=== PATIENT | female | born 1990 | race Caucasian/White ===

== ENCOUNTER → 2020-10-09 | Outpatient (CLI) | payer OTHER ==
--- NOTE | 2020-10-09 13:31 | MM ---
Reason for exam: clinical finding. History: Family history of breast cancer in paternal grandmother. Physical Findings: Nurse Summary: 2cm nodule in the left breast at 7 o'clock (nurse marcelina). MG 3D Diag Mammo W/Cad NAY Bilateral CC and MLO view(s) were taken. The breast tissue is extremely dense which could obscure a lesion on mammography. 3cm mass in the left breast at 5 o'clock, 5cm from nipple. Ultrasound left breast. These results were verbally communicated with the patient and result sheet given to the patient on 10/09/20. ASSESSMENT: Incomplete: need additional imaging evaluation, BI-RAD 0 RECOMMENDATION: Ultrasound of the left breast.
--- NOTE | 2020-10-09 13:33 | USB ---
Reason for exam: additional evaluation requested from abnormal screening. History: Family history of breast cancer in paternal grandmother. US Breast Workup Limited LT Left limited breast ultrasound including focal area of concern, retroareolar and axilla demonstrates a 2.9 x 2.3 x 3.4cm solid lesion at 8 o'clock. Recommend left ultrasound guided breast biopsy. These results were verbally communicated with the patient and result sheet given to the patient on 10/09/20. ASSESSMENT: Suspicious, BI-RAD 4 RECOMMENDATION: Ultrasound core biopsy of the left breast. Called Dr. Price's office with mammographic findings and has scheduled an appointment for the patient for 10/25/20 at 1:[address] Frye. Biopsy scheduled for 11/01/20. PRELIMINARY REPORT CALLED AND FAXED TO DR. FRYE ON 10/09/20.
== END | disposition home or self-care (01) ==
LOC: RADMAMWWP 07:17
PROVIDERS: ATTEND Family Medicine
DX: N63.24 Unspecified lump in the left breast, lower inner quadrant (principal); N63.23 Unspecified lump in the left breast, lower outer quadrant; R92.8 Other abnormal and inconclusive findings on diagnostic imaging of breast; Z80.3 Family history of malignant neoplasm of breast
CPT/HCPCS: 77062; 77066

== ENCOUNTER → 2020-10-25 | Outpatient (CLI) | payer OTHER ==
[2020-10-25 13:10] VITALS: BP 126/85; PULSE 100; RESP 16; TEMP 98.6
--- NOTE | 2020-10-25 13:37 | P.GSHP ---
History of Present Illness H&P Date: 10/25/20 Chief Complaint: mass left breast Temitope is a 30 year old white female who noted a lump in her left breast approximately 1 year ago. She is seen in consultation for Dr. Dior. She states the lump is uncomfortable near her. It has not changed in size otherwise. The patient had a bilateral mammogram performed on [id number] this was her first mammogram and she was noted to have a 3 cm mass in the left breast at 5 o'clock position. She then underwent an ultrasound and the ultrasound revealed a 3.4 cm solid lesion at the 8 o'clock position this was considered suspicious BIRADS 4 and ultrasound-guided core biopsy was recommended. The patient has not had any prior surgery in her breast is not reporting any infection or trauma to the breast. Caffiene: 1 liter of pop/day nicotine: second hand smoke/dad chocolate: daily Family history: paternal great-grandmother: breast Hormonal History: menarche: 10 Go periods regular/LMP 2 weeks ago BCP: none hormones: none Surgical history: Sutures right leg Medical history: none History: Nicotine: Secondhand smoke exposure Alcohol: Occasional Drugs: Negative - Constitutional Constitutional: Denies chills, Denies fever - EENT Eyes: denies blurred vision, denies pain Ears: deny: decreased hearing, tinnitus Ears, nose, mouth and throat: Denies headache, Denies sore throat - Breasts Breasts: bilateral: as per HPI - Cardiovascular Cardiovascular: Denies chest pain, Denies shortness of breath - Respiratory Respiratory: Denies cough, Denies 7 - Gastrointestinal Gastrointestinal: Denies abdominal pain, Denies diarrhea, Denies nausea, Denies vomiting - Genitourinary (Female) Genitourinary: Denies dysuria, Denies hematuria - Menstruation Menstruation: Reports period normal - Musculoskeletal Musculoskeletal: Denies myalgias - Integumentary Integumentary: Denies pruritus, Denies rash - Neurological Neurological: Denies numbness, Denies weakness - Psychiatric Comment: Possible seasonal affective disorder Psychiatric: Reports depression - Endocrine Endocrine: Denies fatigue, Denies weight change - Hematologic/Lymphatic Comment: none - Allergic/Immunologic Allergic/Immunologic: Reports seasonal allergies Past Medical History History of Any Multi-Drug Resistant Organisms: None Reported Smoking Status: Second hand smoke exposure Medications and Allergies Home Medications Medication Instructions Recorded Confirmed Type Guaifen/Phenyleph/Acetaminophn 1 each PO Q4H PRN 10/24/20 10/25/20 History [Tylenol Sinus Severe Caplet] Ibuprofen [Advil] 200 mg PO Q6HR PRN 10/24/20 10/25/20 History Allergies Allergy/AdvReac Type Severity Reaction Status Date / Time No Known Allergies Allergy Verified 10/25/20 12:58 Surgical - Exam Vital Signs Temp Pulse Resp BP Pulse Ox 98.6 F 100 16 126/85 98 10/25/20 13:01 10/25/20 13:01 10/25/20 13:01 10/25/20 13:01 10/25/20 13:01 BMI 37.1 - General well developed, no distress - Eyes normal ocular movement - ENT normal pinna, normal nares, no hearing loss - Neck no masses, trachea midline - Respiratory normal respiratory effort, clear to auscultation - Cardiovascular Rhythm: regular Heart Sounds: normal: S1, S2 - Integumentary normal turgor - Neurologic no disoriented, no combative - Musculoskeletal normal gait, normal posture - Psychiatric Breast Exam: BRA: 36DD inspection: Bilateral grade 3 ptosis Palpation: Right breast: Multiple positional exam fibrocystic changes no dominant masses or nodules of concern Right axilla: No adenopathy of concern Left breast: Fibrocystic changes at the 7 to 8 o'clock position there is approximately 3 cm mobile mass Left axilla: No adenopathy of concern Results Mammogram and ultrasound reviewed in person with Dr. Galaviz Assessment and Plan Assessment: Impression: 1. Mass left breast 7 to 8 o'clock position 2. Radiographic abnormality left breast 7 o'clock position 3. Fibrocystic breast changes 4. Mass most likely represents a benign fibroadenoma Plan: 1. Would recommend ultrasound-core biopsy of the area to confirm fibroadenoma This and benefits of the procedure discussed with the patient. She understands and wishes to proceed. She will be seen following the core biopsy. CC: Dr. Dior
== END ==
LOC: WWCWWP 12:47
PROVIDERS: ATTEND Surgery
DX: N63.23 Unspecified lump in the left breast, lower outer quadrant (principal); N60.11 Diffuse cystic mastopathy of right breast; N60.12 Diffuse cystic mastopathy of left breast

== ENCOUNTER → 2020-11-01 | Day surgery (SDC) | payer OTHER ==
[2020-11-01 09:39] VITALS: RESP 16
[2020-11-01 10:56] VITALS: BP 99/66; PULSE 70; TEMP 98
--- NOTE | 2020-11-01 11:23 | USB ---
EXAMINATION TYPE: US biopsy breast VAD LT DATE OF EXAM: 11/01/2020 CLINICAL HISTORY: R92.8 Abnormal Mammogram. TECHNIQUE: Ultrasound guided core biopsy of left breast. COMPARISON: 10/09/2020 FINDINGS: The procedure of ultrasound guided core biopsy was explained to the patient. Benefits, alternatives, and risks were discussed. An informed consent was then obtained. The patient was placed in supine positioning for imaging and for the procedure. The overlying skin was prepped and draped in usual sterile fashion. Lidocaine buffered with bicarbonate was used as anesthetic into the skin and subcutaneous tissue up to area of concern in the left breast. A [place] was made with surgical scalpel. Under ultrasound guidance, a 12-gauge vacuum assisted biopsy gun device was used to obtain 4 core samples. Following this, a biopsy clip was left in lesion. The patient tolerated the procedure well without any immediate complication. The patient was kept in the radiology department for short stay after the procedure and then discharged home in stable condition. IMPRESSION: Successful, uncomplicated ultrasound guided core biopsy of area of concern in the left breast, full pathology results to follow. Pathology Results: Benign LEFT BREAST, 8:00, ULTRASOUND GUIDED CORE BIOPSY: Fibroadenoma. Recommendation Follow up ultrasound of the left breast in 6 months. DOROTHY
== END ==
LOC: RADUSWWP 09:23
PROVIDERS: ATTEND Surgery
DX: D24.2 Benign neoplasm of left breast (principal); R92.8 Other abnormal and inconclusive findings on diagnostic imaging of breast
CPT/HCPCS: 88305; 19083; A4648; J2001

== ENCOUNTER → 2020-11-07 | Outpatient (CLI) | payer OTHER ==
[2020-11-07 11:02] VITALS: BP 112/76; PULSE 89; RESP 18; TEMP 98.4
--- NOTE | 2020-11-07 11:14 | P.PN ---
Subjective Progress Note Date: 11/07/20 Principal diagnosis: symptomatic fibroadenoma left breast Temitope is a 30 year old white female who noted a lump in her left breast approximately 1 year ago. She is seen in consultation for Dr. Dior. She states the lump is uncomfortable near her. It has not changed in size otherwise. The patient had a bilateral mammogram performed on this was her first mammogram and she was noted to have a 3 cm mass in the left breast at 5 o'clock position. She then underwent an ultrasound and the ultrasound revealed a 3.4 cm solid lesion at the 8 o'clock position this was considered suspicious BIRADS 4 and ultrasound-guided core biopsy was recommended. The patient has not had any prior surgery in her breast is not reporting any infection or trauma to the breast. She underwent an ultrasound-guided core biopsy and which revealed a fibroadenoma of the lesion in the left breast at the 8 o'clock position. The patient states that the fibroadenoma is tender, and it has increased in size. She would like it to be removed. Caffiene: 1 liter of pop/day nicotine: second hand smoke/dad chocolate: daily Family history: paternal great-grandmother: breast Hormonal History: menarche: 10 Go periods regular/LMP 2 weeks ago BCP: none hormones: none Surgical history: Sutures right leg Medical history: none History: Nicotine: Secondhand smoke exposure Alcohol: Occasional Drugs: Negative - Constitutional Constitutional: Denies chills, Denies fever - EENT Eyes: denies blurred vision, denies pain Ears: deny: decreased hearing, tinnitus Ears, nose, mouth and throat: Denies headache, Denies sore throat - Breasts Breasts: bilateral: as per HPI - Cardiovascular Cardiovascular: Denies chest pain, Denies shortness of breath - Respiratory Respiratory: Denies cough, Denies 7 - Gastrointestinal Gastrointestinal: Denies abdominal pain, Denies diarrhea, Denies nausea, Denies vomiting - Genitourinary (Female) Genitourinary: Denies dysuria, Denies hematuria - Menstruation Menstruation: Reports period normal - Musculoskeletal Musculoskeletal: Denies myalgias - Integumentary Integumentary: Denies pruritus, Denies rash - Neurological Neurological: Denies numbness, Denies weakness - Psychiatric Comment: Possible seasonal affective disorder Psychiatric: Reports depression - Endocrine Endocrine: Denies fatigue, Denies weight change - Hematologic/Lymphatic Comment: none - Allergic/Immunologic Allergic/Immunologic: Reports seasonal allergies Objective - Vital Signs Vital signs: Vital Signs Temp 98.4 F 11/07/20 10:58 Pulse 89 11/07/20 10:58 Resp 18 11/07/20 10:58 BP 112/76 11/07/20 10:58 Pulse Ox 98 11/07/20 10:58 Intake & Output 11/06/20 11/07/20 11/07/20 18:59 06:59 18:59 Weight 104.326 kg - Exam BMI 37.1 - Constitutional General appearance: Present: cooperative - EENT Eyes: Present: EOMI ENT: Present: hearing grossly normal - Neck Neck: Present: normal ROM - Respiratory Respiratory: bilateral: CTA - Cardiovascular Rhythm: regular Heart sounds: normal: S1, S2 - Integumentary Integumentary Comment(s): Biopsy site left breast mild ecchymosis, no evidence of infection or hematoma - Musculoskeletal Musculoskeletal: Present: gait normal - Psychiatric Psychiatric: Present: A&O x's 3, appropriate affect, intact judgment & insight Assessment and Plan Assessment: Impression: 1. Tender enlarging fibroadenoma left breast Plan: 1. Removal of fibroadenoma Risks and benefits of the procedure discussed with the patient she understands and wishes to proceed. Risks include but are not limited to bleeding, infection, reaction to the anesthetic. Additionally the fibroadenoma can recur. Cc: Dr. Dior
== END ==
LOC: WWCWWP 10:49
PROVIDERS: ATTEND Surgery
DX: D24.2 Benign neoplasm of left breast (principal)

== ENCOUNTER → 2021-01-30 | Outpatient (CLI) | payer OTHER ==
[2021-01-30 15:51] VITALS: BP 128/82; PULSE 87; RESP 16; TEMP 98.1
--- NOTE | 2021-01-30 15:55 | P.PN ---
Subjective Progress Note Date: 01/30/21 Principal diagnosis: Symptomatic fibroadenoma left breast Temitope is a 30 year old white female who noted a lump in her left breast approximately 1 year ago. She is seen in consultation for Dr. Dior. She states the lump is uncomfortable near her. It has not changed in size otherwise. The patient had a bilateral mammogram performed on this was her first mammogram and she was noted to have a 3 cm mass in the left breast at 5 o'clock position. She then underwent an ultrasound and the ultrasound revealed a 3.4 cm solid lesion at the 8 o'clock position this was considered suspicious BIRADS 4 and ultrasound-guided core biopsy was recommended. The patient has not had any prior surgery in her breast is not reporting any infection or trauma to the breast. She underwent an ultrasound-guided core biopsy and which revealed a fibroadenoma of the lesion in the left breast at the 8 o'clock position. The patient states that the fibroadenoma is tender, and it has increased in size. She would like it to be removed. Caffiene: 1 liter of pop/day nicotine: second hand smoke/dad chocolate: daily Family history: paternal great-grandmother: breast Hormonal History: menarche: 10 Go periods regular/LMP 2 weeks ago BCP: none hormones: none Surgical history: Sutures right leg Medical history: none History: Nicotine: Secondhand smoke exposure Alcohol: Occasional Drugs: Negative - Constitutional Constitutional: Denies chills, Denies fever - EENT Eyes: denies blurred vision, denies pain Ears: deny: decreased hearing, tinnitus Ears, nose, mouth and throat: Denies headache, Denies sore throat - Breasts Breasts: bilateral: as per HPI - Cardiovascular Cardiovascular: Denies chest pain, Denies shortness of breath - Respiratory Respiratory: Denies cough - Gastrointestinal Gastrointestinal: Denies abdominal pain, Denies diarrhea, Denies nausea, Denies vomiting - Genitourinary (Female) Genitourinary: Denies dysuria, Denies hematuria - Menstruation Menstruation: Reports period normal - Musculoskeletal Musculoskeletal: Denies myalgias - Integumentary Integumentary: Denies pruritus, Denies rash - Neurological Neurological: Denies numbness, Denies weakness - Psychiatric Comment: Possible seasonal affective disorder Psychiatric: Reports depression - Endocrine Endocrine: Denies fatigue, Denies weight change - Hematologic/Lymphatic Comment: none - Allergic/Immunologic Allergic/Immunologic: Reports seasonal allergies Objective - Constitutional General appearance: Present: cooperative - EENT Eyes: Present: EOMI ENT: Present: hearing grossly normal - Neck Neck: Present: normal ROM - Respiratory Respiratory: bilateral: CTA - Cardiovascular Heart sounds: normal: S1, S2 - Gastrointestinal General gastrointestinal: Present: soft - Integumentary Integumentary: Present: normal turgor - Musculoskeletal Musculoskeletal: Present: gait normal - Psychiatric Psychiatric: Present: A&O x's 3, appropriate affect, intact judgment & insight - Additional findings Additional findings: Breast Exam: BRA: 36DD inspection: Bilateral grade 3 ptosis Palpation: Right breast: Multiple positional exam fibrocystic changes no dominant masses or nodules of concern Right axilla: No adenopathy of concern Left breast: Multiple positional exam fibrocystic changes, approximately 3 cm area of nodularity at the 7 to 8 o'clock position consistent with biopsy-proven fibroadenoma Left axilla: No adenopathy of concern Assessment and Plan Assessment: Impression: 1. Symptomatic left breast fibroadenoma Plan: 1. Resection of symptomatic left breast fibroadenoma at 8:00, most likely be used periareolar incision with possible onco-plastic tissue transfer CC: Ovi
== END | disposition home or self-care (01) ==
LOC: WWCWWP 15:34
PROVIDERS: ATTEND Surgery
DX: Z53.9 Procedure and treatment not carried out, unspecified reason (principal)

== ENCOUNTER 2021-02-18 08:20 | Day surgery (SDC) | payer BC, OTHER ==
[2021-02-13 15:39] VITALS: BMI 37.1
[~2021-02-18 08:20] MED LIST: DEXAMETHASONE SOD PHOSPHATE 4 MG/ML 1 ML VIAL IV ONE; HEPARIN SODIUM,PORCINE/PF 5,000 UNIT/0.5 ML SYRINGE SQ PRN; HYDROmorphone 0.5 MG/0.5 ML SYRINGE IVP PRN; LACTATED RINGERS 1,000 ML IV SCH; ONDANSETRON 4 MG/2 ML VIAL IVP ONE
[2021-02-18] MEDS ORDERED: LIDOCAINE 1% (10MG/ML) FOR IV START INTRADERMA ONE (09:15)
[2021-02-18] MEDS ORDERED: SCOPOLAMINE 1.5MG/72HR PATCH TRANSDERM ONE (09:30)
[2021-02-18] MEDS ORDERED: MIDAZOLAM 2 MG/2 ML VIAL ONE (09:38)
[2021-02-18] MEDS ORDERED: PROPOFOL 10 MG/ML 20 ML VIAL IV ONE (09:38)
[2021-02-18] MEDS ORDERED: LIDOCAINE 1% INJ 10MG/ML (20 ML MDV) ONE (09:38)
[2021-02-18] MEDS ORDERED: fentaNYL (PF) 50 MCG/ML 2 ML AMP ONE (09:38)
[2021-02-18] MEDS ORDERED: LIDOCAINE 1% INJ 10MG/ML (20 ML MDV) SQ ONE (10:06)
--- NOTE | 2021-02-18 10:27 | P.OP ---
Date of Procedure: 02/18/21 Preoperative Diagnosis: Left breast fibroadenoma Postoperative Diagnosis: Same Procedure(s) Performed: Excision left breast symptomatic fibroadenoma Anesthesia: JUN Surgeon: Ban Frye Estimated Blood Loss (ml): 2 IV fluids (ml): 400 Pathology: other (fibroadenoma) Condition: stable Disposition: same day Indications for Procedure: Symptomatic fibroadenoma Operative Findings: Mass left breast Description of Procedure: The patient was brought to the operating room and following induction of anesthesia the left breast was prepped and draped in a sterile fashion. An incision was made over the palpable abnormality. Wide excision was performed of the lesion. The lesion was approximately 4 x 3 cm in size. Following this the wound was well irrigated. The deep tissues were closed using 3-0 Vicryl suture. Titanium clips had been placed. The specimen was painted for orientation. The skin was closed using 4-0 Monocryl. 8 Cc of 1% lidocaine were used to anesthetize the area of concern. Steri-Strips were applied. The patient tolerated the procedure in stable condition. All instrument and sponge counts were correct at the end of the case.
--- NOTE | 2021-02-18 10:29 | P.DS ---
Providers Attending physician: Ban Frye Primary care physician: Dayton Dior MD Plan - Discharge Summary Discharge Rx Participant: No New Discharge Prescriptions: No Action Guaifen/Phenyleph/Acetaminophn [Tylenol Sinus Severe Caplet] 1 each PO Q4H PRN PRN Reason: allergies Ascorbic Acid [Vitamin C] 1,000 mg PO DAILY Discharge Medication List Guaifen/Phenyleph/Acetaminophn [Tylenol Sinus Severe Caplet] 1 each PO Q4H PRN 10/24/20 [History] Ascorbic Acid [Vitamin C] 1,000 mg PO DAILY 02/13/21 [History] Follow up Appointment(s)/Referral(s): Ban Frye MD [STAFF PHYSICIAN] - 02/28/21 3:20 pm Patient Instructions/Handouts: *Surgery [facility] - Scopalamine Patch Instructions Activity/Diet/Wound Care/Special Instructions: do not drive today may shower after 48 hours Discharge Disposition: HOME SELF-CARE
[2021-02-18 10:40] VITALS: TEMP 97
[2021-02-18] MEDS ORDERED: HYDROmorphone 0.5 MG/0.5 ML SYRINGE IVP ONE ×2 (10:53)
[2021-02-18 11:09] VITALS: RESP 16
[2021-02-18 11:44] VITALS: BP 138/76; PULSE 63
[2021-02-18] MEDS ORDERED: HYDROcodone/APAP 5-325MG 1 EACH TAB ONE (11:44)
[2021-02-18] MEDS ORDERED: HYDROcodone/APAP 5-325MG 1 EACH TAB PO ONE (11:46)
== END 2021-02-18 12:14 | disposition home or self-care (01) ==
LOC: OR 08:20
PROVIDERS: ATTEND Surgery
DX: D24.2 Benign neoplasm of left breast (principal)
CPT/HCPCS: 19120; 81025; 88305; J2250; J1100; J0690; J2405; J2001; J3010; J2704; J1170

== ENCOUNTER → 2021-02-28 | Outpatient (CLI) | payer BC, OTHER ==
--- NOTE | 2021-02-28 15:32 | P.PN ---
Progress Note - Text Progress Note Date: 02/28/21 Temitope is status [place] [id number]. She has done well postprocedure without any complaints. Physical exam: Incision clean and dry Impression: Patient status post excision fibroadenoma left breast Plan: Repeat left breast ultrasound in 6 months with examination at that time CC: Dr. Dior
[2021-02-28 15:33] VITALS: BP 102/73; PULSE 102; RESP 14; TEMP 98
== END ==
LOC: WWCWWP 15:22
PROVIDERS: ATTEND Surgery
DX: Z53.9 Procedure and treatment not carried out, unspecified reason (principal)

== ENCOUNTER → 2021-08-25 | Outpatient (CLI) | payer BC ==
--- NOTE | 2021-08-25 08:53 | USB ---
Reason for exam: clinical finding. History: Family history of breast cancer in paternal grandmother. Benign US biopsy breast VAD LT of the left breast, November 01, 2020. Physical Findings: A clinical breast exam by your physician is recommended on an annual basis and results should be correlated with mammographic findings. US Breast Limited LT Left limited breast ultrasound including focal area of concern, retroareolar and axilla demonstrates a 0.3 x 0.3 x 0.2cm oval, cystic lesion at 6 o'clock, a 0.3 x 0.3 x 0.2cm oval, cystic lesion at 9 o'clock and duct ectasia at the posterior nipple. Results were given to the patient verbally at the time of the exam. ASSESSMENT: Benign, BI-RAD 2 RECOMMENDATION: Routine screening mammogram of both breasts at age 39.
== END | disposition home or self-care (01) ==
LOC: RADUSWWP 07:43
PROVIDERS: ATTEND Surgery
DX: R92.8 Other abnormal and inconclusive findings on diagnostic imaging of breast (principal)

== ENCOUNTER → 2021-09-04 | Outpatient (CLI) | payer BC ==
[2021-09-04 10:04] VITALS: BP 109/75; PULSE 87; RESP 17; TEMP 98.4
--- NOTE | 2021-09-04 10:15 | P.PN ---
Subjective Progress Note Date: 09/04/21 Principal diagnosis: fibrocystic breast disease Symptomatic fibroadenoma left breast Temitope is a 31 year old white female who noted a lump in her left breast approximately 1 year ago. She is seen in consultation for Dr. Dior. She states the lump is uncomfortable near her. It has not changed in size otherwise. The patient had a bilateral mammogram performed on this was her first mammogram and she was noted to have a 3 cm mass in the left breast at 5 o'clock position. She then underwent an ultrasound and the ultrasound revealed a 3.4 cm solid lesion at the 8 o'clock position this was considered suspicious BIRADS 4 and ultrasound-guided core biopsy was recommended. The patient has not had any prior surgery in her breast is not reporting any infection or trauma to the breast. She underwent an ultrasound-guided core biopsy and which revealed a fibroadenoma of the lesion in the left breast at the 8 o'clock position. The patient states that the fibroadenoma is tender, and it has increased in size. She would like it to be removed. 09-04-21 Temitope underwent excision of the fibroadenoma in the operating room on . She has done well since that time. She underwent a left breast ultrasound and . This revealed a 0.3 x 0.2 cm oval cystic lesion at 6:00 and a 0.3 x 0.3 cm cystic lesion at 9:00. No lesions of concern were identified. Routine screening mammogram of both breasts at age 39 was recommended. Patient does not feel any new lumps masses or nodules of concern in either breast. She's not had any recent trauma or infection of the breast. Caffiene: 1 liter of pop/day nicotine: second hand smoke/dad chocolate: daily BCP: none hormones: none Family history: paternal great-grandmother: breast Hormonal History: menarche: 10 Go periods regular/LMP 1week ago BCP: none hormones: none Surgical history: Sutures right leg Medical history: none History: Nicotine: Secondhand smoke exposure Alcohol: Occasional Drugs: Negative - Constitutional Constitutional: Denies chills, Denies fever - EENT Eyes: denies blurred vision, denies pain Ears: deny: decreased hearing, tinnitus Ears, nose, mouth and throat: Denies headache, Denies sore throat - Breasts Breasts: bilateral: as per HPI - Cardiovascular Cardiovascular: Denies chest pain, Denies shortness of breath - Respiratory Respiratory: Denies cough - Gastrointestinal Gastrointestinal: Denies abdominal pain, Denies diarrhea, Denies nausea, Denies vomiting - Genitourinary (Female) Genitourinary: Denies dysuria, Denies hematuria - Menstruation Menstruation: Reports period normal - Musculoskeletal Musculoskeletal: Denies myalgias - Integumentary Integumentary: Denies pruritus, Denies rash - Neurological Neurological: Denies numbness, Denies weakness - Psychiatric Comment: Possible seasonal affective disorder Psychiatric: Reports depression - Endocrine Endocrine: Denies fatigue, Denies weight change - Hematologic/Lymphatic Comment: none - Allergic/Immunologic Allergic/Immunologic: Reports seasonal allergies Objective - Vital Signs Vital signs: Vital Signs Temp 98.4 F 09/04/21 10:01 Pulse 87 09/04/21 10:01 Resp 17 09/04/21 10:01 BP 109/75 09/04/21 10:01 Pulse Ox 98 09/04/21 10:01 Intake & Output 09/03/21 09/04/21 09/04/21 18:59 06:59 18:59 Weight 104.326 kg - Exam BMI: 37.1 - Constitutional General appearance: Present: cooperative - EENT Eyes: Present: EOMI ENT: Present: hearing grossly normal - Neck Neck: Present: normal ROM - Respiratory Respiratory: bilateral: CTA - Cardiovascular Rhythm: regular Heart sounds: normal: S1, S2 - Integumentary Integumentary: Present: normal turgor - Musculoskeletal Musculoskeletal: Present: gait normal - Psychiatric Psychiatric: Present: A&O x's 3, appropriate affect, intact judgment & insight - Additional findings Additional findings: Breast Exam: BRA: 38DD inspection: Bilateral grade 3 ptosis, well-healed scar left breast from prior resection Palpation: Right breast: Multi-positional exam fibrocystic changes no dominant masses or nodules of concern Right axilla: No adenopathy of concern Left breast: Multi-positional exam fibrocystic changes no dominant masses or nodules of concern Left axilla: No adenopathy of concern Assessment and Plan Assessment: Impression: Fibrocystic breast changes No evidence of recurrent fibroadenoma Recent ultrasound of the left breast no evidence of recurrent fibroadenoma this was done Plan: Repeat left breast ultrasound in 6 months with position exam at that time Patient to call sooner if any questions or concerns CC: Dr. Dior
== END | disposition home or self-care (01) ==
LOC: WWCWWP 09:55
PROVIDERS: ATTEND Surgery
DX: Z53.9 Procedure and treatment not carried out, unspecified reason (principal)

== ENCOUNTER → 2022-02-26 | Outpatient (CLI) | payer BC ==
--- NOTE | 2022-02-26 09:17 | USB ---
Patient History: Menarche at age 10. 11/01/2020, Benign Core Biopsy on the left side. Paternal grandmother had breast cancer. Technique: Method: Whole Breast Handheld. Prior Study Comparison: 10/09/2020 Bilateral Diagnostic Mammogram, [facility]. Findings: The whole breast of the left breast, the axilla of the left breast and the retroareolar of the left breast were scanned. Whole breast ultrasound including thinning of the subareolar region and axilla. There is a 6 mm benign cyst at the 4:00 position. There is also a benign 7 x 4 x 4 mm cyst cluster at the 7:00 position, 2 cm from the nipple. No other solid or cystic lesion or axillary lymphadenopathy. No recurrent fibroadenoma. Overall Assessment: Benign, BI-RAD 2 Management: Screening Mammogram of both breasts at age 39. 1. Patient should continue monthly self breast exams. 2. A clinical breast exam by your physician is recommended on an annual basis. 3. This exam should not preclude additional follow-up of suspicious palpable abnormalities. Results were given to the patient verbally at the time of exam. Electronically signed and approved by: Yanely Galaviz M.D. Radiologist
== END | disposition home or self-care (01) ==
LOC: RADUSWWP 08:24
PROVIDERS: ATTEND Surgery
DX: R92.8 Other abnormal and inconclusive findings on diagnostic imaging of breast (principal)

== ENCOUNTER → 2022-03-05 | Outpatient (CLI) | payer BC ==
[2022-03-05 10:38] VITALS: BP 143/85; PULSE 58; RESP 17; TEMP 98.9
--- NOTE | 2022-03-05 10:47 | P.PN ---
Subjective Progress Note Date: 03/05/22 Principal diagnosis: fibroadenoma resection left breast 2020 Temitope underwent excision of the fibroadenoma in the operating room on . She has done well since that time. She underwent a left breast ultrasound on . This revealed a 0.3 x 0.2 cm oval cystic lesion at 6:00 and a 0.3 x 0.3 cm cystic lesion at 9:00. No lesions of concern were identified. Routine screening mammogram of both breasts at age 39 was recommended. Patient does not feel any new lumps masses or nodules of concern in either breast. She's not had any recent trauma or infection of the breast. She had a left breast ultrasound on 02-26-22. Several cystic lesions were noted. This was BIRAD 2. He is not concerned about any lumps masses or nodules in either breast. Caffiene: 1 liter of pop/day nicotine: second hand smoke/dad chocolate: daily BCP: none hormones: none Family history: paternal great-grandmother: breast Hormonal History: menarche: 10 Go periods regular/LMP 1week ago BCP: none hormones: none Surgical history: Sutures right leg resection of fibroadenoma of the left breast Medical history: none History: Nicotine: Secondhand smoke exposure Alcohol: Occasional Drugs: Negative - Constitutional Constitutional: Denies chills, Denies fever - EENT Eyes: denies blurred vision, denies pain Ears: deny: decreased hearing, tinnitus Ears, nose, mouth and throat: Denies headache, Denies sore throat - Breasts Breasts: bilateral: as per HPI - Cardiovascular Cardiovascular: Denies chest pain, Denies shortness of breath - Respiratory Respiratory: Denies cough - Gastrointestinal Gastrointestinal: Denies abdominal pain, Denies diarrhea, Denies nausea, Denies vomiting - Genitourinary (Female) Genitourinary: Denies dysuria, Denies hematuria - Menstruation Menstruation: Reports period normal - Musculoskeletal Musculoskeletal: Denies myalgias - Integumentary Integumentary: Denies pruritus, Denies rash - Neurological Neurological: Denies numbness, Denies weakness - Psychiatric Comment: Possible seasonal affective disorder Psychiatric: Reports depression - Endocrine Endocrine: Denies fatigue, Denies weight change - Hematologic/Lymphatic Comment: none - Allergic/Immunologic Allergic/Immunologic: Reports seasonal allergies Objective - Vital Signs Vital signs: Vital Signs Temp 98.9 F 03/05/22 10:35 Pulse 58 L 03/05/22 10:35 Resp 17 03/05/22 10:35 BP 143/85 03/05/22 10:35 Pulse Ox 98 03/05/22 10:35 FiO2 Intake & Output 03/04/22 03/05/22 03/05/22 18:59 06:59 18:59 Weight 108.409 kg - Constitutional General appearance: Present: cooperative - EENT Eyes: Present: EOMI ENT: Present: hearing grossly normal - Neck Neck: Present: normal ROM - Respiratory Respiratory: bilateral: CTA - Cardiovascular Rhythm: regular Heart sounds: normal: S1, S2 - Gastrointestinal General gastrointestinal: Present: soft - Integumentary Integumentary: Present: normal turgor - Psychiatric Psychiatric: Present: A&O x's 3, appropriate affect, intact judgment & insight - Additional findings Additional findings: Breast Exam: BRA: 36DD Inspection: Bilateral grade 2 ptosis Palpation: Right breast: Multi-positional exam fibrocystic changes no discrete dominant masses or nodules of concern Right axilla: No adenopathy of concern Left breast: Oriented scar from prior surgery, no discrete dominant masses or nodules of concern Left axilla: No adenopathy of concern Assessment and Plan Assessment: Impression: Fibrocystic breast changes Fibroadenoma removed left breast approximately 1 year ago no evidence of recurrence Plan: Routine screening mammogram at 39 Patient will just have a breast examination in 1 year Patient a two-month the breast self exams she notes anything she'll call us sooner CC: Dr. Dior
== END | disposition home or self-care (01) ==
LOC: WWCWWP 10:03
PROVIDERS: ATTEND Surgery
DX: Z53.9 Procedure and treatment not carried out, unspecified reason (principal)

== ENCOUNTER → 2023-04-16 | Outpatient (CLI) | payer BC ==
[2023-04-16 09:54] VITALS: BP 114/78; PULSE 75; RESP 18; TEMP 98
--- NOTE | 2023-04-16 10:03 | P.PN ---
Subjective Progress Note Date: 04/16/23 Principal diagnosis: fibroadenoma 2020 fibroadenoma resection left breast 2020 Tem[facility] underwent excision of the fibroadenoma in the operating room on . She has done well since that time. She underwent a left breast ultrasound on . This revealed a 0.3 x 0.2 cm oval cystic lesion at 6:00 and a 0.3 x 0.3 cm cystic lesion at 9:00. No lesions of concern were identified. Routine screening mammogram of both breasts at age 39 was recommended. Patient does not feel any new lumps masses or nodules of concern in either breast. She's not had any recent trauma or infection of the breast. She had a left breast ultrasound on 02-26-22. Several cystic lesions were noted. This was BIRAD 2. He is not concerned about any lumps masses or nodules in either breast. 04-16-23 She is not complaining of any new lumps masses or nodules of concern in either breast. She has not had any recent breast imaging. Caffiene: 1 liter of pop/day nicotine: second hand smoke/dad chocolate: daily BCP: none hormones: none Family history: paternal great-grandmother: breast Hormonal History: menarche: 10 Go periods regular/LMP 1week ago BCP: none hormones: none Surgical history: Sutures right leg resection of fibroadenoma of the left breast Medical history: none History: Nicotine: Secondhand smoke exposure Alcohol: Occasional Drugs: Negative - Constitutional Constitutional: Denies chills, Denies fever - EENT Eyes: denies blurred vision, denies pain Ears: deny: decreased hearing, tinnitus Ears, nose, mouth and throat: Denies headache, Denies sore throat - Breasts Breasts: bilateral: as per HPI - Cardiovascular Cardiovascular: Denies chest pain, Denies shortness of breath - Respiratory Respiratory: Denies cough - Gastrointestinal Gastrointestinal: Denies abdominal pain, Denies diarrhea, Denies nausea, Denies vomiting - Genitourinary (Female) Genitourinary: Denies dysuria, Denies hematuria - Menstruation Menstruation: Reports period normal - Musculoskeletal Musculoskeletal: Denies myalgias - Integumentary Integumentary: Denies pruritus, Denies rash - Neurological Neurological: Denies numbness, Denies weakness - Psychiatric Comment: Possible seasonal affective disorder Psychiatric: Reports depression - Endocrine Endocrine: Denies fatigue, Denies weight change - Hematologic/Lymphatic Comment: none - Allergic/Immunologic Allergic/Immunologic: Reports seasonal allergies Objective - Vital Signs Vital signs: Vital Signs Temp 98.0 F 04/16/23 09:37 Pulse 75 04/16/23 09:37 Resp 18 04/16/23 09:37 BP 114/78 04/16/23 09:37 Pulse Ox 98 04/16/23 09:37 FiO2 Intake & Output 04/15/23 04/16/23 04/16/23 18:59 06:59 18:59 Weight 108.862 kg - Constitutional General appearance: Present: cooperative - EENT Eyes: Present: EOMI ENT: Present: hearing grossly normal - Neck Neck: Present: normal ROM - Respiratory Respiratory: bilateral: CTA - Cardiovascular Rhythm: regular Heart sounds: normal: S1, S2 - Integumentary Integumentary: Present: normal turgor - Musculoskeletal Musculoskeletal: Present: gait normal - Psychiatric Psychiatric: Present: A&O x's 3, appropriate affect, intact judgment & insight - Additional findings Additional findings: Breast Exam: BRA: 36DD Inspection: Bilateral grade 2 ptosis Palpation: Right breast: Multi-positional exam fibrocystic changes no discrete dominant masses or nodules of concern Right axilla: No adenopathy of concern Left breast: scar from prior surgery, no discrete dominant masses or nodules of concern Left axilla: No adenopathy of concern Mild fungal infection under both breast Assessment and Plan Assessment: Impression: Fibrocystic breast changes Fibroadenoma removed left breast approximately 2 year ago no evidence of recurrence Fungal infection under both breast Plan: Routine screening mammogram at 39 Patient will just have a breast examination in 1 year Nystatin cream for fungal infection as needed Patient to follow up sooner if she notes anything she'll call us sooner CC: Dr. Dior
== END ==
LOC: WWCWWP 09:28
PROVIDERS: ATTEND Surgery
DX: N60.12 Diffuse cystic mastopathy of left breast (principal); B37.89 Other sites of candidiasis; Z77.22 Contact with and (suspected) exposure to environmental tobacco smoke (acute) (chronic); Z86.018 Personal history of other benign neoplasm; Z80.3 Family history of malignant neoplasm of breast

== ENCOUNTER → 2024-04-20 | Outpatient (CLI) | payer BC ==
[2024-04-20 10:47] VITALS: BP 124/81; PULSE 68; RESP 17; TEMP 98.1
--- NOTE | 2024-04-20 10:48 | P.PN ---
Subjective Progress Note Date: 04/20/24 Principal diagnosis: fibroadenoma in the left breast 04/16/23 Principal diagnosis: fibroadenoma resection left breast 2020 [facility] underwent excision of the fibroadenoma in the operating room on . She has done well since that time. She underwent a left breast ultrasound on . This revealed a 0.3 x 0.2 cm oval cystic lesion at 6:00 and a 0.3 x 0.3 cm cystic lesion at 9:00. No lesions of concern were identified. Routine screening mammogram of both breasts at age 39 was recommended. Patient does not feel any new lumps masses or nodules of concern in either breast. She's not had any recent trauma or infection of the breast. She had a left breast ultrasound on 02-26-22. Several cystic lesions were noted. This was BIRAD 2. He is not concerned about any lumps masses or nodules in either breast. 04-16-23 She is not complaining of any new lumps masses or nodules of concern in either breast. She has not had any recent breast imaging. 04-20-24 She is not complaining of any new lumps masses or nodules of concern in either breast. She does say that she has a fungal infection under both breast. She was not able to obtain the nystatin cream last time. Caffiene: 1 liter of pop/day nicotine: second hand smoke/dad chocolate: daily BCP: none hormones: none Family history: paternal great-grandmother: breast Hormonal History: menarche: 10 Go periods regular/LMP 1week ago BCP: none hormones: none Surgical history: Sutures right leg resection of fibroadenoma of the left breast Medical history: none History: Nicotine: Secondhand smoke exposure Alcohol: Occasional Drugs: Negative - Constitutional Constitutional: Denies chills, Denies fever - EENT Eyes: denies blurred vision, denies pain Ears: deny: decreased hearing, tinnitus Ears, nose, mouth and throat: Denies headache, Denies sore throat - Breasts Breasts: bilateral: as per HPI - Cardiovascular Cardiovascular: Denies chest pain, Denies shortness of breath - Respiratory Respiratory: Denies cough - Gastrointestinal Gastrointestinal: Denies abdominal pain, Denies diarrhea, Denies nausea, Denies vomiting - Genitourinary (Female) Genitourinary: Denies dysuria, Denies hematuria - Menstruation Menstruation: Reports period normal - Musculoskeletal Musculoskeletal: Denies myalgias - Integumentary Integumentary: Denies pruritus, Denies rash - Neurological Neurological: Denies numbness, Denies weakness - Psychiatric Comment: Possible seasonal affective disorder Psychiatric: Reports depression - Endocrine Endocrine: Denies fatigue, Denies weight change - Hematologic/Lymphatic Comment: none - Allergic/Immunologic Allergic/Immunologic: Reports seasonal allergies Objective - Constitutional General appearance: Present: cooperative - EENT Eyes: Present: EOMI ENT: Present: hearing grossly normal - Neck Neck: Present: normal ROM - Respiratory Respiratory: bilateral: CTA - Cardiovascular Rhythm: regular Heart sounds: normal: S1, S2 - Integumentary Integumentary: Present: normal turgor - Musculoskeletal Musculoskeletal: Present: gait normal - Psychiatric Psychiatric: Present: A&O x's 3, appropriate affect, intact judgment & insight - Additional findings Additional findings: Breast Exam: BRA: 36DD Inspection: Bilateral grade 2 ptosis Palpation: Right breast: Multi-positional exam fibrocystic changes no discrete dominant masses or nodules of concern Right axilla: No adenopathy of concern Left breast: scar from prior surgery, no discrete dominant masses or nodules of concern Left axilla: No adenopathy of concern Mild fungal infection under both breast Assessment and Plan Assessment: Impression: Fibrocystic breast changes Fibroadenoma removed left breast approximately 3 year ago no evidence of recurrence Fungal infection under both breast Plan: Routine screening mammogram at 39 Patient will just have a breast examination in 1 year Nystatin cream for fungal infection as needed Patient to follow up sooner if she notes anything she'll call us sooner CC: Dr. Dior
== END ==
LOC: WWCWWP 10:34
PROVIDERS: ATTEND Surgery
DX: D24.2 Benign neoplasm of left breast (principal); N60.11 Diffuse cystic mastopathy of right breast; B48.8 Other specified mycoses